=== PATIENT | male | born 1930 | race Caucasian/White ===

== ENCOUNTER 2018-09-14 13:30 | Inpatient (IN) | payer OTHER ==
[~2018-09-14] VITALS: Ht 167.6 cm; Wt 80.9 kg
[2018-09-21] MEDS ORDERED: TELM80TA8 PO (10:13)
[2018-09-21] MEDS ORDERED: LACTATED RINGERS 1,000 ML IV SCH (10:13)
[2018-09-21] MEDS ORDERED: CLOP75TA PO (10:13)
[2018-09-21] MEDS ORDERED: [UNRECOGNIZED DRUG - CODE] (10:13)
[2018-09-21] MEDS ORDERED: ASPI-496 PO (10:13)
[2018-09-21] MEDS ORDERED: ROSU40TA PO (10:13)
[2018-09-21] MEDS ORDERED: FLUO10CA7 PO (10:19)
[2018-09-21] MEDS ORDERED: UBID200C7 PO (10:19)
[2018-09-21] MEDS ORDERED: FLUTICASONE NS (10:19)
[2018-09-21] MEDS ORDERED: PROTAMINE SULFATE 10 MG/ML, 5ML ONE (10:24)
[2018-09-21] MEDS ORDERED: BUPIVACAINE/PF-EPI 0.5% 1:200K ONE (10:24)
[2018-09-21] MEDS ORDERED: PAPAVERINE 30 MG/ML, 2ML ONE (10:24)
[2018-09-21] MEDS ORDERED: HEPARIN 5,000 UNITS/ML, 1ML ONE (10:25)
[2018-09-21] MEDS ORDERED: LIDOCAINE 1%, 20ML ONE (10:25)
[2018-09-21] MEDS ORDERED: THROMBIN 20,000 UNIT VIAL TP ONE (10:25)
[2018-09-21 10:54] LABS: BASOPHILS # (AUTO) 0.02 x10^3/uL (0-0.1); BASOPHILS % (AUTO) 0 % (0-1); EOSINOPHILS # (AUTO) 0.14 x10^3/uL (0-0.4); EOSINOPHILS % (AUTO) 2 % (1-7); LYMPHOCYTES # (AUTO) 0.63 x10^3/uL (1-3.4); LYMPHOCYTES % (AUTO) 8 % (22-44); MD NO; MEAN CORPUSCULAR HEMOGLOBIN 30.5 pg (27.5-34.5); MEAN CORPUSCULAR HGB CONC 32.4 g/dL (33.2-36.2); MEAN CORPUSCULAR VOLUME 93.9 fL (81-97); MEAN PLATELET VOLUME 7.2 fL (7.4-10.4); MONOCYTES # (AUTO) 0.85 x10^3/uL (0.2-0.8); MONOCYTES % (AUTO) 11 % (2-9); NEUTROPHILS # (AUTO) 6.03 x10^3/uL (1.8-6.8); NEUTROPHILS % (AUTO) 79 % (42-75); PLATELET COUNT 175 x10^3/uL (130-400); RED BLOOD COUNT 4.32 x10^6/uL (4.38-5.82); RED CELL DISTRIBUTION WIDTH 14.3 % (9.4-14.8)
[2018-09-21 10:57] VITALS: BP 124/78
[2018-09-21] MEDS ORDERED: FENTANYL PF 100 MCG/2ML ONE ×2 (11:00→12:29)
[2018-09-21 11:16] LABS: ANION GAP 9 mmol/L (5-15); CALCIUM 8.7 mg/dL (8.5-10.1); CHLORIDE 107 mmol/L (98-107)
[2018-09-21 11:17] LABS: CREATININE 1.65 mg/dL (0.7-1.3)
[2018-09-21] MEDS ORDERED: EPHEDRINE 50 MG/ML, 1ML ONE (11:40)
[2018-09-21] MEDS ORDERED: HEPARIN 1,000 UNITS/ML, 10ML ONE (12:11)
[2018-09-21] MEDS ORDERED: ESMOLOL 100 MG/10 ML ONE (12:29)
[2018-09-21] MEDS ORDERED: SUCCINYLCHOLINE 20 MG/ML, 10ML ONE (12:29)
[2018-09-21] MEDS ORDERED: CEFAZOLIN 1,000 MG ONE (12:29)
[2018-09-21] MEDS ORDERED: GLYCOPYRROLATE 0.2MG/1ML, 5ML ONE (12:29)
[2018-09-21] MEDS ORDERED: PROPOFOL 10 MG/ML, 20ML ONE (12:29)
[2018-09-21] MEDS ORDERED: NEOSTIGMINE 1 MG/ML, 10ML ONE (12:29)
[2018-09-21] MEDS ORDERED: ROCURONIUM 10MG/ML,5ML ONE (12:29)
[2018-09-21] MEDS ORDERED: ONDANSETRON 2MG/ML, 2ML ONE (12:29)
[2018-09-21] MEDS ORDERED: DEXAMETHASONE 4 MG/ML, 1ML ONE (12:29)
[2018-09-21] MEDS ORDERED: LABETALOL 5MG/ML, 20ML IV PRN (12:30)
[2018-09-21] MEDS ORDERED: HALOPERIDOL 5 MG/ML IV PRN (12:30)
[2018-09-21] MEDS ORDERED: HYDROmorphone 2 MG/ML, 1ML IVPush PRN (12:30)
[2018-09-21] MEDS ORDERED: FENTANYL PF 100 MCG/2ML IV PRN (12:30)
[2018-09-21] MEDS ORDERED: hydrALAzine 20 MG/ML, 1ML IV PRN ×2 (12:30→16:30)
[2018-09-21] MEDS ORDERED: PROMETHAZINE 25 MG/ML, 1ML IV PRN (12:30)
[2018-09-21] MEDS ORDERED: ALBUTEROL SULFATE 2.5 MG/3 ML NPPB PRN (12:30)
[2018-09-21] MEDS ORDERED: OXYcodone 5 MG/5 ML ORAL.SOL UDC PO PRN (12:30)
[2018-09-21] MEDS ORDERED: SUGAMMADEX 200 MG/2 ML IVPush ONE (13:01)
[2018-09-21] MEDS ORDERED: ASPIRIN 81 MG TABLET EC PO STA (14:10)
[2018-09-21] MEDS ORDERED: ASPIRIN 81 MG TABLET EC ONE (14:13)
[2018-09-21] MEDS ORDERED: ASPIRIN 81 MG TABLET EC PO ONE (14:30)
[2018-09-21] MEDS ORDERED: ONDANSETRON 2MG/ML, 2ML IV PRN (16:30)
[2018-09-21] MEDS ORDERED: ACETAMINOPHEN 325 MG TABLET PO PRN (16:30)
[2018-09-21] MEDS ORDERED: MORPHINE SULFATE 4 MG/ML, 1ML IV PRN (16:30)
[2018-09-21] MEDS ORDERED: HYDROcodone/APAP 5/325 TABLET PO PRN (16:30)
[2018-09-21] MEDS ORDERED: LABETALOL 5MG/ML, 20ML IVPush PRN ×2 (16:30)
[2018-09-21] MEDS: CEFAZOLIN PMX 2GM/50ML 50 ML IVPB SCH (20:30)
[2018-09-21 20:50] VITALS: BP 99/53
[2018-09-21] MEDS ORDERED: ATORVASTATIN 80 MG TABLET PO SCH (21:00)
[2018-09-21] MEDS: SODIUM CHLORIDE FLUSH 10ML SYR IVF SCH (21:00)
[2018-09-21] MEDS: FLUTICASONE NASAL SPRAY 16GM NAS SCH (21:24)
[2018-09-21 23:33] VITALS: BP 107/63
[2018-09-21] MEDS: LACTATED RINGERS 1,000 ML IV SCH (23:36)
[2018-09-22] MEDS: CEFAZOLIN PMX 2GM/50ML 50 ML IVPB SCH (04:56)
[2018-09-22 04:57] VITALS: BP 117/67
[2018-09-22] MEDS ORDERED: ASPIRIN 81 MG TABLET EC PO SCH (06:00)
[2018-09-22 07:10] VITALS: BP 122/63
[2018-09-22] MEDS: FLUTICASONE NASAL SPRAY 16GM NAS SCH (08:20)
[2018-09-22] MEDS: SODIUM CHLORIDE FLUSH 10ML SYR IVF SCH (08:21)
[2018-09-22] MEDS: LACTATED RINGERS 1,000 ML IV SCH (08:55)
[2018-09-22] MEDS ORDERED: LOSARTAN 50MG TABLET PO SCH (09:00)
[2018-09-22] MEDS ORDERED: FLUOXETINE 10 MG CAP PO SCH (09:00)
[2018-09-22] MEDS ORDERED: CETIRIZINE 10 MG TABLET PO SCH (09:00)
[2018-09-22 13:30] VITALS: BP 103/64
[2018-09-22 13:42] VITALS: BP 95/60
[2018-09-22] MEDS ORDERED: CETI10CA PO (13:56)
== END 2018-09-22 14:27 | disposition home or self-care (01) | DRG 38 ==
LOC: ORIP 09-21 09:41 → 4NOR 09-21 15:46 → DCLOUNGE 09-22 14:05
PROVIDERS: ADMIT Surgery; ATTEND Surgery
PROC: 03CH0Z6 (ICD-10-PCS; 2018-09-21)
PROC: 03CM0ZZ Extirpation of Matter from Right External Carotid Artery, Open Approach (ICD-10-PCS; 2018-09-21)
PROC: 03CK0ZZ Extirpation of Matter from Right Internal Carotid Artery, Open Approach (ICD-10-PCS; 2018-09-21)
PROC: 03UH0KZ Supplement Right Common Carotid Artery with Nonautologous Tissue Substitute, Open Approach (ICD-10-PCS; 2018-09-21)
PROC: 03UK0KZ Supplement Right Internal Carotid Artery with Nonautologous Tissue Substitute, Open Approach (ICD-10-PCS; 2018-09-21)
PROC: 03UM0KZ Supplement Right External Carotid Artery with Nonautologous Tissue Substitute, Open Approach (ICD-10-PCS; 2018-09-21)
PROC: 4A133B1 Monitoring of Arterial Pressure, Peripheral, Percutaneous Approach (ICD-10-PCS; 2018-09-21)
PROC: 4A133J1 Monitoring of Arterial Pulse, Peripheral, Percutaneous Approach (ICD-10-PCS; 2018-09-21)
PROC: 03HY32Z Insertion of Monitoring Device into Upper Artery, Percutaneous Approach (ICD-10-PCS; principal; 2018-09-21 11:30)
DX: I65.21 Occlusion and stenosis of right carotid artery (principal); I69.351 Hemiplegia and hemiparesis following cerebral infarction affecting right dominant side; I25.10 Atherosclerotic heart disease of native coronary artery without angina pectoris; I10 Essential (primary) hypertension; E78.5 Hyperlipidemia, unspecified; Z82.49 Family history of ischemic heart disease and other diseases of the circulatory system; Z88.0 Allergy status to penicillin; Z95.1 Presence of aortocoronary bypass graft; Z87.891 Personal history of nicotine dependence
CPT/HCPCS: 36415; 80048; 85025; 86850; 86900; 93005; C1729; G0378; J0690; J1100; J1644; J2405; J2704; J2710; J2720; J3010; C1768; J0330; J2440; J7120